=== PATIENT | female | born 1980 | race African-American/Black ===

== ENCOUNTER 2017-03-22 15:25 | Emergency (ER) | payer SELFPAY ==
[~2017-03-22] VITALS: Ht 167.6 cm; Wt 106.3 kg
[~2017-03-22 15:25] MED LIST: NAPR500 PO
[2017-03-22 15:47] VITALS: BP 149/82; PULSE 73; RESP 16; TEMP 99; O2SAT 99
[2017-03-22] MEDS ORDERED: ORPHENADRINE INJ 60 MG/2 ML AMP IM ONE (17:15)
[2017-03-22] MEDS ORDERED: KETOROLAC TROMETHAMINE 60 MG/2 ML (IM) VIAL IM ONE (17:15)
[2017-03-22] MEDS ORDERED: CYCL10TA PO (17:16)
--- NOTE | 2017-03-22 17:17 | PD ---
HPI Chief Complaint: Back/ Neck Pain or Injury Time Seen by Provider: 17:05 Travel History International Travel<30 days: No Contact w/Intl Traveler<30days: No Traveled to known affect area: No History of Present Illness HPI 36-year-old female presents to the emergency department for evaluation of bilateral neck pain that started approximately 3 weeks ago. She denies a traumatic injury. The pain is exacerbated by movement. She denies any history of the same. Patient denies any weakness or paresthesias. She has no medical problems and takes no prescribed medications. She has been trying Aleve, ibuprofen, Excedrin adxu-sqt-ovokvoi without improvement. She has not followed up with her physician. 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 She denies any history of IV drug use. No fevers or chills. Severity is moderate. Exacerbating factor is movement. Alleviating factor is rest. PFSH Past Medical History Medical History: Denies Significant Hx Diminished Hearing: No Tetanus Vaccination: < 5 Years Influenza Vaccination: No ?: Not LMP: 03/12/17 Dilation and Curettage (D&C): Yes Past Surgical History Gynecologic Surgery: Yes (dnc, fibroids removed) Social History Alcohol Use: Yes (weekends) Tobacco Use: No Substance Use: No Allergies-Medications (Allergen,Severity, Reaction): Coded Allergies: No Known Allergies (Unverified Adverse Reaction, Unknown, 03/22/17) Reported Meds & Prescriptions Reported Meds & Active Scripts Active Review of Systems Except as stated in HPI: all other systems reviewed are Neg Physical Exam Narrative GENERAL: Well-nourished, well-developed female patient, ambulatory. Afebrile. SKIN: Focused skin assessment warm/dry. HEAD: Normocephalic. Atraumatic. EYES: No scleral icterus. No injection or drainage. NECK: Supple, trachea midline. No JVD or lymphadenopathy. CARDIOVASCULAR: Regular rate and rhythm without murmurs, gallops, or rubs. Bilateral radial pulses are 2+. RESPIRATORY: Breath sounds equal bilaterally. No accessory muscle use. Lungs sounds are clear to auscultation. GASTROINTESTINAL: Abdomen soft, non-tender, nondistended. MUSCULOSKELETAL: No cyanosis, or edema. Patient has tenderness over bilateral trapezius muscles. She has full range of motion cervical spine, but pain with lateral rotation. She has full sensation to the distal bilateral upper extremities. BACK: Nontender without obvious deformity. No CVA tenderness. Data Data Last Documented VS Vital Signs Date Time Temp Pulse Resp B/P (MAP) Pulse Ox O2 Delivery O2 Flow Rate FiO2 03/22/17 15:47 99.0 73 16 149/82 (104) 99 Orders Orders Ketorolac Inj (Toradol Inj) (03/22/17 17:15) Orphenadrine Inj (Norflex Inj) (03/22/17 17:15) MDM Medical Decision Making Medical Screen Exam Complete: Yes Emergency Medical Condition: Yes Medical Record Reviewed: Yes Differential Diagnosis Muscle strain versus muscle spasm versus herniated disc Narrative Course 36-year-old female presents to the emergency department for evaluation of bilateral neck pain that started 3 weeks ago without injury. Physical exam is reassuring and is consistent with muscle strain. Patient is given Toradol 60 mg IM, Norflex 60 mg IM. Patient will be discharged with a prescription for Flexeril. She is to continue ibuprofen dbrz-bjl-oormpss as needed. She is using heating pad on low and follow-up with her primary care physician. The patient was discharged in stable condition with instructions, including return instructions and follow up instructions. Diagnosis Primary Impression: Trapezius muscle strain Qualified Codes: S46.819A - Strain of other muscles, fascia and tendons at shoulder and upper arm level, unspecified arm, initial encounter Referrals: Primary Care Physician call for appointment Patient Instructions: General Instructions, Muscle Strain (ED) Additional Instructions: Continue lyvs-vjp-wnczzfs ibuprofen every 6 hours as needed for pain. Take Flexeril as directed as needed. Heating pad on low for 20 minutes 4-5 times daily. Follow-up with your primary care physician. Return to the emergency department for any acute worsening of symptoms. Med/Other Pt SpecificInfo: Prescription(s) given Scripts Cyclobenzaprine (Flexeril) 10 Mg Tab 10 MG PO TID Y for MUSCLE SPASM, #21 TAB 0 Refills Prov: Richard Barnettadrienne NAILS 03/22/17 Disposition: 01 DISCHARGE HOME Condition: Stable Abeba Barnett Mar 22, 2017 17:17
== END 2017-03-22 17:39 | disposition home or self-care (01) ==
LOC: PHED 15:25 → PHEFT 17:39
DX: S46.819A Strain of other muscles, fascia and tendons at shoulder and upper arm level, unspecified arm, initial encounter (principal); X58.XXXA Exposure to other specified factors, initial encounter
CPT/HCPCS: 96372; 99284; J1885; J2360

== ENCOUNTER → 2017-08-11 | Outpatient (CLI) | payer BC ==
[~2017-08-11] MED LIST changes: +CYCL10TA PO; -NAPR500 PO
== END ==
LOC: HPND 10:48
PROVIDERS: ATTEND Obstetrics & Gynecology
DX: O09.521 Supervision of elderly multigravida, first trimester (principal); Z36.82 Encounter for antenatal screening for nuchal translucency; O09.811 Supervision of pregnancy resulting from assisted reproductive technology, first trimester
CPT/HCPCS: 36415; 76813

== ENCOUNTER → 2017-09-08 | Outpatient (CLI) | payer BC | LOC: HPND 11:09 | PROVIDERS: ATTEND Obstetrics & Gynecology | DX: O09.522 Supervision of elderly multigravida, second trimester (principal); O24.12 Pre-existing type 2 diabetes mellitus, in childbirth; O34.29 Maternal care due to uterine scar from other previous surgery | CPT/HCPCS: 76811; 76817 ==

== ENCOUNTER → 2017-10-06 | Outpatient (CLI) | payer BC | LOC: HPND 10:47 | PROVIDERS: ATTEND Obstetrics & Gynecology | DX: O09.522 Supervision of elderly multigravida, second trimester (principal); O35.0XX0 Maternal care for (suspected) central nervous system malformation in fetus, not applicable or unspecified; O36.5120 Maternal care for known or suspected placental insufficiency, second trimester, not applicable or unspecified; O34.12 Maternal care for benign tumor of corpus uteri, second trimester | CPT/HCPCS: 76816 ==

== ENCOUNTER 2017-12-10 12:19 | Inpatient (IN) ==
[2017-12-10 14:05] LABS: Baso % (Auto) 0.4 % (0.0-2.0); Eos # (Auto) 0.1 th/mm3 (0.0-0.4); Eos % (Auto) 1.3 % (0.0-4.0); Hematocrit 30.8 % (35.0-46.0); Hemoglobin 10.2 gm/dL (11.6-15.3); Lymph % (Auto) 14.7 % (9.0-44.0); Mean Corpuscular Hemoglobin 25.7 pg (27.0-34.0); Mean Corpuscular Volume 77.7 fL (80.0-100.0); Mean Platelet Volume 8.9 fL (7.0-11.0); Mono # (Auto) 0.5 th/mm3 (0.0-0.9); Mono % (Auto) 7.5 % (0.0-8.0); Neut # (Auto) 5.3 th/mm3 (1.8-7.7); Neut % (Auto) 76.1 % (16.0-70.0); Platelet Count 173 th/mm3 (150-450); Red Blood Count 3.96 mil/mm3 (4.00-5.30); Red Cell Distribution Width 15.2 % (11.6-17.2)
[2017-12-10] MEDS ORDERED: Docusate Sodium 100 MG Capsule PO PRN (14:11)
[2017-12-10] MEDS ORDERED: Zolpidem Tartrate 5 MG Tablet PO PRN (14:11)
[2017-12-10] MEDS ORDERED: Mag Sulf/Water 4 gm/100 ml 100 ML IV.SIG ONE (14:11)
[2017-12-10] MEDS: Betamethasone Sod Phos/Acetate Inj 30 MG/5 ML Vial IM SCH (14:26)
[2017-12-10] MEDS ORDERED: Penicillin G Potassium Inj 5,000,000 UNIT in Sodium Chloride 0.9% Inj 100 ML IV.SIG ONE (14:30)
[2017-12-10 14:36] LABS: Bacteria,Urine Rare /hpf; Bilirubin,Urine Negative (Negative); Clarity,Urine Hazy (Clear); Color,Urine Yellow (Yellw/Straw); Glucose,Urine (UA) Negative (Negative); Leukocyte Esterase,Urine Negative (Negative); Mucus,Urine Few /lpf (Occasional); Nitrite,Urine Negative (Negative); Specific Gravity,Urine 1.019 (1.002-1.035); Squamous Epithelial Cell,Urine 11 /hpf (0-5)
--- NOTE | 2017-12-10 14:47 | MH ---
cc: Michele Stiles MD DATE OF ADMISSION: 12/10/2017 TIME OF EVALUATION: 1:00 p.m. ADMITTING DIAGNOSIS: Premature rupture of membranes at 30-31 weeks. HISTORY OF PRESENT ILLNESS: The patient is a 37-year-old , black female, para 0-0-2-0 with an LMP of 05/08/2017, EDC of 02/12/2018. Her history is spontaneous rupture of membranes copious clear fluid at 12:07 p.m. today confirmed by RN with gross rupture. She is now admitted for evaluation and treatment. PAST MEDICAL HISTORY: She had a spontaneous in 2002 at 3 months, she had a twin miscarriage in 2013 less than 12 weeks, she had laparoscopic robotic myomectomies x 7 in 2013. This occurred with IUI through the [facility]. The patient has been followed by me for obstetrical care since 07/13/2017. Her first TM screen was pertinent for a low HEIDI-A and elevated AFP. She has had sequential ultrasounds to assess growth and fluid, and these have been normal. Her most recent scan yesterday showed the baby in a footling breech presentation; EFW of 1581 grams with the placenta anterior and no evidence for previa. She has multiple fibroids, the largest 5.9 cm x 6. MEDICATIONS: Vitamins and iron. ALLERGIES: NONE. TRANSFUSIONS: None. SOCIAL HISTORY: She is . 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 Alcohol, tobacco and drugs are none. FAMILY HISTORY: Noncontributory. REVIEW OF SYSTEMS: Negative. PHYSICAL EXAMINATION: GENERAL: She is a well-nourished, well-developed, black female. VITAL SIGNS: Stable. HEENT: Normal. CHEST: Clear. HEART: Regular rate. BREASTS: Symmetrical. ABDOMEN: Gravid. EFW of 1600 grams. EXTREMITIES: Normal. PELVIC: Deferred. PLAN: Strep culture, penicillin prophylaxis, ultrasound, steroid therapy for lung maturation, sulfate therapy for neuro preservation. I explained we will attempt to maintain , but should she develop signs of infection or distress with the delivery, discussed hazard of prematurity and our NICU could accommodate her baby. We will get a NICU consult in the event additional measures are needed. Patient and understand the risk of prematurity and agreed to proceed as planned. MD RAMOS Daniels/rome , 01:37 PM , 01:45 PM [email or web address]
[2017-12-10] MEDS: Mag Sulf/Water 40 gm/1000 ml 40 GM/1,000 ML BAG IV.CONT SCH (15:09)
[2017-12-10] MEDS: Penicillin G Potassium Inj 2,500,000 UNIT in Sodium Chlor 0.9% Inj 100 ML IV.SIG SCH (18:13)
[2017-12-10] MEDS: Acetaminophen 325 MG Tablet PO PRN (19:56)
[2017-12-11] MEDS: Penicillin G Potassium Inj 2,500,000 UNIT in Sodium Chlor 0.9% Inj 100 ML IV.SIG SCH ×7 (03:12→22:25)
[2017-12-11] MEDS: Acetaminophen 325 MG Tablet PO PRN (03:12)
[2017-12-11] MEDS: Mag Sulf/Water 40 gm/1000 ml 40 GM/1,000 ML BAG IV.CONT SCH ×2 (08:56→16:43)
[2017-12-11] MEDS: Prenatal Vit/Ca/Iron/Folic Acid Tablet PO SCH (09:00)
[2017-12-11] MEDS: Docusate Sodium 100 MG Capsule PO SCH ×2 (14:35→20:48)
[2017-12-11] MEDS: Betamethasone Sod Phos/Acetate Inj 30 MG/5 ML Vial IM SCH (14:36)
[2017-12-12] MEDS: Penicillin G Potassium Inj 2,500,000 UNIT in Sodium Chlor 0.9% Inj 100 ML IV.SIG SCH ×2 (02:11→06:25)
[2017-12-12 04:30] LABS: Baso % (Auto) 0.1 % (0.0-2.0); Hematocrit 28.4 % (35.0-46.0); Hemoglobin 9.3 gm/dL (11.6-15.3); Lymph % (Auto) 9.3 % (9.0-44.0); Mean Corpuscular HGB Conc 32.6 % (32.0-36.0); Mean Corpuscular Hemoglobin 25.5 pg (27.0-34.0); Mean Corpuscular Volume 78.2 fL (80.0-100.0); Mean Platelet Volume 8.5 fL (7.0-11.0); Mono # (Auto) 0.5 th/mm3 (0.0-0.9); Neut # (Auto) 9.2 th/mm3 (1.8-7.7); Neut % (Auto) 85.6 % (16.0-70.0); Platelet Count 169 th/mm3 (150-450); Red Blood Count 3.63 mil/mm3 (4.00-5.30); Red Cell Distribution Width 15.3 % (11.6-17.2); White Blood Count 10.7 th/mm3 (4.0-11.0)
[2017-12-12] MEDS ORDERED: Citric Acid/Sodium Citrate Liq 30 ML UDC ONE (06:37)
[2017-12-12] MEDS ORDERED: Citric Acid/Sodium Citrate Liq 30 ML UDC PO SCH (06:45)
[2017-12-12] MEDS ORDERED: ceFAZolin Inj 2,000 MG in Sodium Chlor 0.9% Inj 80 ML IV.SIG SCH (07:00)
[2017-12-12] MEDS ORDERED: Morphine Sulfate PF Inj 5 MG/10 ML Ampul ONE (07:24)
[2017-12-12] MEDS ORDERED: Oxytocin 30 Units/500ml Premix 30 UNITS/500 ML BAG IV.SIG ONE (07:27)
[2017-12-12] MEDS: Docusate Sodium 100 MG Capsule PO SCH ×2 (09:18→22:42)
[2017-12-12] MEDS: Prenatal Vit/Ca/Iron/Folic Acid Tablet PO SCH (09:19)
[2017-12-12] MEDS ORDERED: Ketorolac Inj 30 MG/ML (IVP) Vial ONE (09:21)
[2017-12-12] MEDS ORDERED: Oxytocin 30 Units/500ml Premix 30 UNITS/500 ML BAG ONE (09:44)
--- NOTE | 2017-12-12 10:42 | MP ---
cc: Michele Stiles MD DATE OF OPERATION: 12/12/2017 PREOPERATIVE DIAGNOSES: 1. at 30-31 weeks. 2. Premature rupture of membranes. 3. Breech presentation. 4. Previous myomectomies. 5. Advanced maternal age. 6. Nonreassuring heart rate tracing. POSTOPERATIVE DIAGNOSES: 1. at 30-31 weeks. 2. Premature rupture of membranes. 3. Breech presentation. 4. Previous myomectomies. 5. Advanced maternal age. 6. Nonreassuring heart rate tracing. 7. Delivered. PROCEDURE PERFORMED: Primary classical section. ANESTHESIA: Spinal. SURGEON: Michele Stiles MD [employer]INE [employer] GR[employer] TASK FORCE PLANNERS: JESU Arroyo SECOND SECURITY SYSTEM ADMINISTRATOR: Carmella. ESTIMATED BLOOD LOSS: 650 mL. FLUIDS: 1.5 liters crystalloid. OBJECTIVE FINDINGS: Following induction of adequate spinal anesthesia, the patient was prepped and draped supine on the operating table in left lateral tilt position in usual sterile fashion with the bladder being drained via Mata catheterization. The abdomen was opened through a Pfannenstiel incision using a knife cut down through the skin to the fascia. The fascia opened transversely, stripped from the muscles, rectus muscle split in the midline and the peritoneum opened sharply without incident. The lower segment was not developed, so the uterus was opened through a midline classical incision using a knife to cut down to the cavity. There was almost no amniotic fluid present with the radio operator ground's fingers inserted into the uterine cavity to protect the fetus. Bandage scissors were used to extend this incision superiorly. The baby was in a footling breech presentation. The feet were then grasped and with gentle traction and fundal pressure, delivery progressed to the shoulder blades, each arm was reduced. The head delivered easily. The mouth was suctioned. The cord was milked for 45 seconds and then clamped and cut and the baby passed to david team. A viable vigorous female weighing 3 pounds 1 ounce. Cord blood collected for typing. The placenta was manually removed and uterus exteriorized. There were some adhesions that were lysed sharply. The uterus had multiple large fibroids. The tubes and ovaries were relatively normal with few fine adhesions that were lysed to allow the delivery of the fundus. Uterine wound was then closed in layers of interrupted sutures of 0 Vicryl in ehanjm-sr-aikik fashion, 3 in the fundus and 2 layers in the lower segment. This provided good hemostasis. The posterior inspection was normal. There was no bleeding. Uterus was placed in the cavity. Irrigation performed. No bleeding was evident. The uterine wound was covered with Interceed and the peritoneum closed with a running stitch of 2-0 Vicryl, the fascia closed with a running locking stitch of 0 Vicryl corner to midline and tied, subcu closed with running 3-0 Vicryl, the skin with a running subcuticular 3-0 Monocryl. Dermabond applied. All counts were correct and the patient was awakened and taken to recovery room in good condition. MD RAMOS Daniels/chanel/joseph , 08:48 AM , 08:54 AM CESILIA
[2017-12-12 12:23] LABS: Hematocrit 27.2 % (35.0-46.0); Hemoglobin 8.7 gm/dL (11.6-15.3); Mean Corpuscular Hemoglobin 25.4 pg (27.0-34.0); Mean Corpuscular Volume 79.2 fL (80.0-100.0); Mean Platelet Volume 8.7 fL (7.0-11.0); Platelet Count 181 th/mm3 (150-450); Red Blood Count 3.43 mil/mm3 (4.00-5.30); Red Cell Distribution Width 15.3 % (11.6-17.2); White Blood Count 12.8 th/mm3 (4.0-11.0)
[2017-12-12] MEDS ORDERED: Oxytocin 30 Units/500ml Premix 30 UNITS/500 ML BAG IV.SIG PRN (12:27)
[2017-12-12] MEDS ORDERED: Zolpidem Tartrate 5 MG Tablet PO PRN (21:00)
[2017-12-13] MEDS: Ibuprofen 600 MG Tablet PO PRN ×4 (04:17→22:24)
[2017-12-13 07:38] LABS: Baso % (Auto) 0.2 % (0.0-2.0); Eos # (Auto) 0.1 th/mm3 (0.0-0.4); Eos % (Auto) 0.8 % (0.0-4.0); Hematocrit 25.9 % (35.0-46.0); Hemoglobin 8.5 gm/dL (11.6-15.3); Lymph # (Auto) 1.2 th/mm3 (1.0-4.8); Lymph % (Auto) 11.8 % (9.0-44.0); Mean Corpuscular HGB Conc 32.8 % (32.0-36.0); Mean Corpuscular Hemoglobin 25.8 pg (27.0-34.0); Mean Corpuscular Volume 78.5 fL (80.0-100.0); Mean Platelet Volume 8.3 fL (7.0-11.0); Mono # (Auto) 0.8 th/mm3 (0.0-0.9); Mono % (Auto) 7.7 % (0.0-8.0); Neut % (Auto) 79.5 % (16.0-70.0); Platelet Count 148 th/mm3 (150-450); Red Cell Distribution Width 15.5 % (11.6-17.2); White Blood Count 10.1 th/mm3 (4.0-11.0)
[2017-12-13] MEDS: Docusate Sodium 100 MG Capsule PO SCH ×2 (09:43→22:23)
[2017-12-13] MEDS: Prenatal Vit/Ca/Iron/Folic Acid Tablet PO SCH (09:43)
[2017-12-13] MEDS: Simethicone 80 MG Chew Tablet PO PRN (09:43)
[2017-12-13] MEDS ORDERED: Measles/Mumps/Rubella Vaccine Inj 0.5 ML Vial SQ ONE (16:00)
[2017-12-13] MEDS ORDERED: Diphtheria/Tetanus/Pertussis Vaccine Inj 0.5 ML Syringe IM ONE (16:00)
[2017-12-13 23:29] LABS: Amphetamine Screen,Urine Neg (Neg); Barbiturate Screen,Urine Neg (Neg); Cannabinoid Screen,Urine Neg (Neg); Cocaine Screen,Urine Neg (Neg)
[2017-12-13 23:30] LABS: Opiate Screen,Urine Neg (Neg)
[2017-12-14] MEDS: Ibuprofen 600 MG Tablet PO PRN ×4 (03:58→22:40)
[2017-12-14] MEDS: Senna/Docusate Sodium 8.6/50 MG Tablet PO PRN ×2 (09:31→22:40)
[2017-12-14] MEDS: Prenatal Vit/Ca/Iron/Folic Acid Tablet PO SCH (09:31)
[2017-12-14] MEDS: Simethicone 80 MG Chew Tablet PO PRN (09:31)
[2017-12-14] MEDS: Docusate Sodium 100 MG Capsule PO SCH ×2 (18:59→21:59)
[2017-12-15] MEDS: Ibuprofen 600 MG Tablet PO PRN ×2 (04:19→11:14)
[2017-12-15] MEDS: Prenatal Vit/Ca/Iron/Folic Acid Tablet PO SCH (09:37)
[2017-12-15] MEDS: Senna/Docusate Sodium 8.6/50 MG Tablet PO PRN (09:38)
[2017-12-15] MEDS: Docusate Sodium 100 MG Capsule PO SCH (10:15)
--- NOTE | 2017-12-16 07:44 | MD ---
cc: Michele Stiles MD DATE OF DISCHARGE: 12/15/2017 ADMITTING DIAGNOSES: 1. at 30-31 weeks. 2. Premature rupture of membranes. 3. Breech presentation. 4. Advanced maternal age. 5. Multiple fibroids with a history of previous myomectomies. DISCHARGE DIAGNOSES: 1. at 30-31 weeks. 2. Premature rupture of membranes. 3. Breech presentation. 4. Advanced maternal age. 5. Multiple fibroids with a history of previous myomectomies. 6. Delivered. HISTORY OF PRESENT ILLNESS: The patient is a 37-year-old , black female, para 0-0-2-0 with a complicated OB history. She had a miscarriage in 2002, at 3 months. She had a twin miscarriage in 2013, less than 3 months, that was followed by robotic laparoscopic multiple myomectomies through Dr. Tapia at the [facility]. occurred with IUI. Her first TM screen was notable for a low HEIDI-A and an elevated AFP. Her ultrasounds showed multiple fibroids. She was on baby aspirin, vitamins, and had PROM at about 12:07 on the day of admission. She was admitted and was placed on prophylactic penicillin, was given steroids x2 doses, and 24 hours of magnesium for neuro protection. On the morning of 12/12/2017, she began to have runs of bradycardia and variable decelerations and was prepared for delivery. She had a primary classical on the morning of 12/12/2017, with delivery of a viable vigorous female. Apgars were 6 and 8. weight was 3 pounds 1 ounce. , mom did well with gradual advance in activity. Discharged home with on 07/15/2017. The baby was doing well in the NICU and is currently on room air and doing orogastric feedings. The patient was advised NPV, light activity, no driving, and return to see me in 1 week. She is to call if abnormal pain, bleeding, temperature, signs of infection, or depression. She was given a prescription for Percocet 5 one to two p.o. every 4 hours p.r.n. pain, number 30, after review of the [place] prescription database. MD RAMOS Daniels/bart , 08:40 AM , 08:47 AM [email or web address]
== END 2017-12-15 11:28 | disposition home or self-care (01) ==
LOC: HOBED 12:19 → H2E 13:04 → H1EA 12-12 10:26
PROVIDERS: ADMIT Obstetrics & Gynecology; ATTEND Obstetrics & Gynecology